=== PATIENT | female | born 1995 | race American Indian/Alaskan Native ===

== ENCOUNTER 2019-02-04 16:26 | Emergency (ER) | payer SELFPAY ==
--- NOTE | 2019-02-04 16:47 | Emergency Department Report ---
Blank Doc - Documentation Documentation: 23 y o female at aprox 8 weeks gestation presents with nausea, found out she was x 3 days denies vag bleed, dysuria,
[2019-02-04 17:05] LABS: Bilirubin,Urine NEG (Negative); Blood,Urine SM (Negative); Color,Urine Yellow (Yellow); Protein,Urine <15 mg/dL mg/dL (Negative)
[2019-02-04] MEDS ORDERED: NACL 0.9% 1000 ML 1,000 ML IV ONE (17:37)
[2019-02-04] MEDS ORDERED: ZOFRAN IV ONE (17:37)
--- NOTE | 2019-02-04 17:40 | Emergency Department Report ---
ED General Adult HPI - General Chief complaint: Nausea/Vomiting/Diarrhea Stated complaint: 8WKS /NOT EATING Time Seen by Provider: 02/04/19 16:42 Source: patient Mode of arrival: Ambulatory Limitations: No Limitations - History of Present Illness Initial comments: Patient is 23-year-old female with no significant past medical history. Patient is 2 para 0. Patient estimated that she is 8 weeks no care so far. Patient presented to the ER complaining of excessive vomiting and sharp pelvic pain. Patient denied any vaginal bleeding or vaginal discharge. Patient is actively vomiting in the emergency room. - Related Data Home Medications Medication Instructions Recorded Confirmed Last Taken Vit No.129/Iron/Folic 1 each PO DAILY 02/04/19 02/04/19 02/04/19 [ Tablet] Allergies Allergy/AdvReac Type Severity Reaction Status Date / Time No Known Allergies Allergy Unverified 09/04/18 11:33 ED Review of Systems ROS: Stated complaint: 8WKS /NOT EATING Other details as noted in HPI Comment: All other systems reviewed and negative Constitutional: denies: chills, fever Respiratory: denies: cough, shortness of breath, SOB with exertion Cardiovascular: denies: chest pain, palpitations Gastrointestinal: nausea, vomiting. denies: abdominal pain, diarrhea, constipation, hematemesis, melena, hematochezia Genitourinary: denies: urgency, dysuria, abnormal menses Musculoskeletal: denies: back pain Neurological: denies: headache, weakness, numbness, paresthesias, confusion ED Past Medical Hx - Past Medical History Previous Medical History?: Yes Hx Kidney Stones: Yes Additional medical history: Miscarriage @ 18weeks - Surgical History Past Surgical History?: No - Social History Smoking Status: Never Smoker Substance Use Type: Other - Medications Home Medications: Home Medications Medication Instructions Recorded Confirmed Last Taken Type Vit No.129/Iron/Folic 1 each PO DAILY 02/04/19 02/04/19 02/04/19 History [ Tablet] ED Physical Exam - General Limitations: No Limitations General appearance: alert, in no apparent distress - Head Head exam: Present: atraumatic, normocephalic, normal inspection - Eye Eye exam: Present: normal appearance - ENT ENT exam: Present: normal exam, normal orophraynx, mucous membranes moist - Neck Neck exam: Present: normal inspection, full ROM. Absent: tenderness, meningismus, lymphadenopathy, thyromegaly - Respiratory Respiratory exam: Present: normal lung sounds bilaterally - Cardiovascular Cardiovascular Exam: Present: regular rate, normal rhythm, normal heart sounds - GI/Abdominal GI/Abdominal exam: Present: soft, normal bowel sounds. Absent: distended, tenderness, guarding, rebound, rigid, organomegaly, mass, bruit, pulsatile mass, hernia - Extremities Exam Extremities exam: Present: normal inspection, full ROM, normal capillary refill. Absent: pedal edema, calf tenderness - Back Exam Back exam: Present: normal inspection, full ROM. Absent: CVA tenderness (R), CVA tenderness (L), muscle spasm, paraspinal tenderness, vertebral tenderness - Neurological Exam Neurological exam: Present: alert, oriented X3, CN II-XII intact, normal gait, reflexes normal - Skin Skin exam: Present: warm, intact, normal color ED Course Vital Signs 02/04/19 02/04/19 16:32 17:52 Temperature 98.2 F Pulse Rate 71 60 Respiratory 20 18 Rate Blood Pressure 116/81 Blood Pressure 118/62 [Right] O2 Sat by Pulse 99 98 Oximetry ED Medical Decision Making - Lab Data Result diagrams: 02/04/19 17:46 02/04/19 17:46 - Radiology Data Radiology results: report reviewed Pelvic ultrasound showed a viable intrauterine at 6 weeks and 3 days gestation. - Medical Decision Making Patient is 23-year-old female with no significant past medical history. Patient is 2 para 0. Patient estimated that she is 8 weeks no care so far. Patient presented to the ER complaining of excessive vomiting and sharp pelvic pain. Patient denied any vaginal bleeding or vaginal discharge. Patient is actively vomiting in the emergency room. Patient stated that she is feeling much better after Zofran and normal saline. She stated that she is hungry and asking if she can eat. Ultrasound report reviewed the initial and a 6 week and daily day and intrauterine gestation viable. Patient given [facility] OB to follow-up with as she requested. Critical care attestation.: If time is entered above; I have spent that time in minutes in the direct care of this critically ill patient, excluding procedure time. ED Disposition Clinical Impression: Abdominal pain affecting , Nausea and vomiting Disposition: - TO HOME OR SELFCARE Is pt being admited?: No Condition: Stable Instructions: Abdominal Pain in (ED), Acute Nausea and Vomiting (ED) Referrals: [facility] [Provider Group] - 3-5 Days
[2019-02-04 18:00] LABS: Basophils % (Auto) 0.7 % (0.0-1.8); Eosinophils # (Auto) 0.1 K/mm3 (0.0-0.4); Eosinophils % (Auto) 0.9 % (0.0-4.3); Hematocrit 38.1 % (30.3-42.9); Hemoglobin 13.2 gm/dl (10.1-14.3); Lymphocytes # (Auto) 2.1 K/mm3 (1.2-5.4); Mean Corpuscular HGB Conc 35 % (30-34); Mean Corpuscular Volume 95 fl (79-97); Monocytes # (Auto) 0.7 K/mm3 (0.0-0.8); Monocytes % (Auto) 11.1 % (0.0-7.3); Platelet Count 307 K/mm3 (140-440); Red Cell Distribution Width 14.2 % (13.2-15.2)
[2019-02-04 18:16] LABS: Alanine Aminotransferase 14 units/L (7-56); Albumin 4.1 g/dL (3.9-5); BUN/Creatinine Ratio 14; Blood Urea Nitrogen 7 mg/dL (7-17); Calcium 8.5 mg/dL (8.4-10.2); Hemolysis Index 12
--- NOTE | 2019-02-04 19:47 | Ultrasound Report ---
PROCEDURE: US OB <= 14 WEEKS FETUS HISTORY: ABDOMINAL PAIN, FINDINGS: Real-time ultrasound of the pelvis was performed by transabdominal and endovaginal techniqu e, and demonstrates a single live intrauterine gestation at 6 weeks and 3 days with cardiac act ivity 124 bpm. The right ovary measures 2.0 x 1.0 x 1.2 cm and the left ovary 3.1 x 2.4 x 2.6 cm. There is no adnexa l mass or evidence of ovarian torsion. IMPRESSION: Single live intrauterine gestation at 6 weeks and 3days. Estimated date of delivery is [facility] 2019 This document is electronically signed by Brian Ahumada MD., February 04 2019 08:44:51 PM ET
--- NOTE | 2019-02-04 19:47 | Ultrasound Report ---
PROCEDURE: US OB TRANSVAGINAL TECHNIQUE: HISTORY: ABDOMINAL PAIN COMPARISONS: FINDINGS: Real-time ultrasound of the pelvis was performed by transabdominal and endovaginal techniqu e, and demonstrates a single live intrauterine gestation at 6 weeks and 3 days with cardiac act ivity 124 bpm. The right ovary measures 2.0 x 1.0 x 1.2 cm and the left ovary 3.1 x 2.4 x 2.6 cm. There is no adnexa l mass or evidence of ovarian torsion. IMPRESSION: Single live intrauterine gestation at 6 weeks and 3days. Estimated date of delivery is [facility] 2019 This document is electronically signed by Brian Ahumada MD., February 04 2019 08:45:03 PM ET
[2019-02-04 20:29] VITALS: BP 105/57
== END 2019-02-04 20:30 | disposition home or self-care (01) ==
LOC: ED 16:26
DX: O21.8 Other vomiting complicating pregnancy (principal); O26.891 Other specified pregnancy related conditions, first trimester; R10.2 Pelvic and perineal pain; Z87.442 Personal history of urinary calculi; Z3A.08 8 weeks gestation of pregnancy
CPT/HCPCS: 36415; 76801; 76817; 80053; 81001; 84702; 85025; 96361; 96374; 99284; J2405; J7030

== ENCOUNTER 2019-02-28 18:37 | Emergency (ER) | payer MEDICAID, OTHER ==
[2019-02-28] MEDS ORDERED: NACL 0.9% 1000 ML 1,000 ML IV ONE (20:03)
[2019-02-28] MEDS ORDERED: REGLAN IV ONE (20:03)
[2019-02-28] MEDS ORDERED: NACL 0.9% 1000 ML 1,000 ML ONE (20:09)
[2019-02-28 20:28] LABS: Basophils % (Auto) 0.4 % (0.0-1.8); Eosinophils % (Auto) 0.4 % (0.0-4.3); Hematocrit 36.8 % (30.3-42.9); Hemoglobin 12.7 gm/dl (10.1-14.3); Lymphocytes # (Auto) 1.8 K/mm3 (1.2-5.4); Lymphocytes % (Auto) 16.9 % (13.4-35.0); Mean Corpuscular HGB Conc 35 % (30-34); Mean Corpuscular Volume 95 fl (79-97); Monocytes # (Auto) 0.9 K/mm3 (0.0-0.8); Monocytes % (Auto) 8.5 % (0.0-7.3); Platelet Count 283 K/mm3 (140-440); Red Blood Count 3.89 M/mm3 (3.65-5.03); Red Cell Distribution Width 13.3 % (13.2-15.2)
[2019-02-28 20:43] LABS: Alanine Aminotransferase 9 units/L (7-56); Albumin 4.2 g/dL (3.9-5); BUN/Creatinine Ratio 11; Blood Urea Nitrogen 8 mg/dL (7-17); Calcium 9.6 mg/dL (8.4-10.2); Hemolysis Index 6
[2019-02-28 20:56] LABS: Bilirubin,Direct < 0.2 mg/dL (0-0.2)
[2019-02-28 21:34] LABS: Bacteria,Urine 1+ /HPF (Negative); Bilirubin,Urine NEG (Negative); Blood,Urine NEG (Negative); Color,Urine Yellow (Yellow); Mucus,Urine 3+ /HPF; Protein,Urine <15 mg/dL mg/dL (Negative); Urobilinogen,Urine < 2.0 mg/dL (<2.0)
--- NOTE | 2019-02-28 21:34 | Emergency Department Report ---
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 10 weeks preg. onset today with dizziness -: Gradual Location: diffuse Severity scale (0 -10): 4 - Related Data Home Medications Medication Instructions Recorded Confirmed Last Taken Vit No.129/Iron/Folic 1 each PO DAILY 02/04/19 02/04/19 02/04/19 [ Tablet] Previous Rx's Medication Instructions Recorded Last Taken Type Ondansetron [Zofran Odt] 4 mg PO Q8HR PRN #14 tab.rapdis 02/04/19 Unknown Rx Vit-Fe Fumar-FA [ 1 tab PO QDAY #30 tablet 02/04/19 Unknown Rx Vitamin] Doxylamine Succinate/Vit B6 1 each PO BID PRN #15 tablet. 02/28/19 Unknown Rx [Timoeto Zelaya 10-10 mg Tablet] Allergies Allergy/AdvReac Type Severity Reaction Status Date / Time No Known Allergies Allergy Unverified 09/04/18 11:33 ED Review of Systems ROS: Stated complaint: ABD PAIN/10WKS Other details as noted in HPI Comment: All other systems reviewed and negative Constitutional: denies: chills ENT: denies: ear pain, throat pain Respiratory: denies: cough, orthopnea Cardiovascular: denies: chest pain, palpitations, dyspnea on exertion, orthopnea Gastrointestinal: nausea, vomiting Skin: denies: rash, lesions ED Past Medical Hx - Past Medical History Previous Medical History?: No Hx Kidney Stones: Yes Additional medical history: Miscarriage @ 18weeks - Surgical History Past Surgical History?: No - Social History Smoking Status: Never Smoker Substance Use Type: Marijuana - Medications Home Medications: Home Medications Medication Instructions Recorded Confirmed Last Taken Type Ondansetron [Zofran Odt] 4 mg PO Q8HR PRN #14 tab.rapdis 02/04/19 Unknown Rx Vit No.129/Iron/Folic 1 each PO DAILY 02/04/19 02/04/19 02/04/19 History [ Tablet] Vit-Fe Fumar-FA [ 1 tab PO QDAY #30 tablet 02/04/19 Unknown Rx Vitamin] Doxylamine Succinate/Vit B6 1 each PO BID PRN #15 tablet. 02/28/19 Unknown Rx [Timoteo Zelaya 10-10 mg Tablet] ED Physical Exam - General Limitations: No Limitations General appearance: alert, in no apparent distress - Head Head exam: Present: atraumatic, normocephalic - Eye Eye exam: Present: normal appearance, PERRL, EOMI Pupils: Present: normal accommodation - ENT ENT exam: Present: normal exam, normal orophraynx - Neck Neck exam: Present: normal inspection - Respiratory Respiratory exam: Present: normal lung sounds bilaterally - Cardiovascular Cardiovascular Exam: Present: regular rate, normal rhythm - Back Exam Back exam: Present: normal inspection - Neurological Exam Neurological exam: Present: alert, oriented X3, CN II-XII intact ED Course Vital Signs 02/28/19 02/28/19 02/28/19 18:58 19:30 20:00 Temperature 97.3 F L 98.5 F Pulse Rate 63 89 Respiratory 16 16 16 Rate Blood Pressure 90/53 Blood Pressure 100/69 [Right] O2 Sat by Pulse 97 99 98 Oximetry 02/28/19 22:00 Temperature 98.1 F Pulse Rate 89 Respiratory 16 Rate Blood Pressure Blood Pressure 114/61 [Right] O2 Sat by Pulse 99 Oximetry ED Medical Decision Making - Lab Data Result diagrams: 02/28/19 20:15 02/28/19 20:15 - Medical Decision Making patient feels better after ivf, state the Critical care attestation.: If time is entered above; I have spent that time in minutes in the direct care of this critically ill patient, excluding procedure time. ED Disposition Clinical Impression: Morning sickness Disposition: DC-01 TO HOME OR SELFCARE Is pt being admited?: No Does the pt Need Aspirin: No Condition: Stable Instructions: Abdominal Pain (ED) Prescriptions: Doxylamine Succinate/Vit B6 [Timoteo Zelaya 10-10 mg Tablet] 1 each PO BID PRN #15 tablet.dr URENA Reason: Nausea And Vomiting Referrals: OMERO RAYMOND MD [Primary Care Provider] - 3-5 Days
[2019-02-28 22:30] VITALS: BP 114/61
== END 2019-02-28 22:20 | disposition home or self-care (01) ==
LOC: ED 18:37
DX: O21.9 Vomiting of pregnancy, unspecified (principal); O26.891 Other specified pregnancy related conditions, first trimester; R10.84 Generalized abdominal pain; Z3A.10 10 weeks gestation of pregnancy; Z87.442 Personal history of urinary calculi
CPT/HCPCS: 36415; 80048; 80076; 81001; 84702; 85025; 96361; 96374; 99284; J2765; J7030

== ENCOUNTER 2019-03-27 18:33 | Day surgery (SDC) | payer MEDICAID ==
[2019-03-27] MEDS ORDERED: NACL 0.9% 1000 ML 1,000 ML IV ONE ×2 (19:12→23:40)
[2019-03-27] MEDS ORDERED: ZOFRAN IV ONE (19:12)
[2019-03-27] MEDS ORDERED: SUBLIMAZE IV ONE (19:12)
--- NOTE | 2019-03-27 19:18 | Emergency Department Report ---
HPI - General Chief Complaint: Vaginal Bleeding Time Seen by Provider: 03/27/19 19:03 - [facility] HPI: Room 10 The patient is a 23-year-old female presenting with a chief complaint of vaginal bleeding and abdominal cramping. The patient states she had demise and was given a prescription for misoprostol. The patient states she took medication at 11:30 this morning and began having cramping. Patient developed vaginal bleeding at 16:00. The patient states she passed the fetus but she has continued to have heavy vaginal bleeding and pelvic cramping. The patient states she is gone through 10 pads since the vaginal bleeding began Location: [See above] Duration: [See above] Quality: [See above] Severity: [See above] Modifying factors: [see above] Context: [see above] Mode of transportation: [not driving] ED Past Medical Hx - Past Medical History Hx Kidney Stones: Yes Additional medical history: Miscarriage @ 18weeks - Surgical History Past Surgical History?: No - Family History Family history: no significant - Social History Smoking Status: Never Smoker Substance Use Type: None - Medications Home Medications: Home Medications Medication Instructions Recorded Confirmed Last Taken Type Ondansetron [Zofran Odt] 4 mg PO Q8HR PRN #14 tab.rapdis 02/04/19 Unknown Rx Vit No.129/Iron/Folic 1 each PO DAILY 02/04/19 02/04/19 02/04/19 History [ Tablet] Vit-Fe Fumar-FA [ 1 tab PO QDAY #30 tablet 02/04/19 Unknown Rx Vitamin] Doxylamine Succinate/Vit B6 1 each PO BID PRN #15 tablet. 02/28/19 Unknown Rx [Timoteo Zelaya 10-10 mg Tablet] ED Review of Systems ROS: Stated complaint: HEAVY BLEEDING/MISCARRIAGE Other details as noted in HPI Constitutional: no symptoms reported Eyes: denies: eye pain ENT: denies: throat pain Respiratory: no symptoms reported Cardiovascular: denies: chest pain Endocrine: no symptoms reported Gastrointestinal: abdominal pain Genitourinary: abnormal menses Musculoskeletal: denies: back pain Neurological: denies: headache Physical Exam - Physical Exam Physical Exam: GENERAL: The patient is well-developed well-nourished female lying on stretcher appearing to be in moderate discomfort. [] HEENT: Normocephalic. Atraumatic. Extraocular motions are intact. Patient has moist mucous membranes. NECK: Supple. Trachea midline CHEST/LUNGS: Clear to auscultation. There is no respiratory distress noted. HEART/CARDIOVASCULAR: Regular. There is no tachycardia. There is no gallop rub or murmur. ABDOMEN: Abdomen is soft, nontender. Patient has normal bowel sounds. There is no abdominal distention. SKIN: There is no rash. There is no edema. There is no diaphoresis. NEURO: The patient is awake, alert, and oriented. The patient is cooperative. The patient has normal speech MUSCULOSKELETAL: There is no evidence of acute injury. PELVIC: Large amount of dark red blood and blood clots in the vaginal vault ED Course - Consultations Consultation #1: 03/27/19 23:41 LEARNING DESIGN SPECIALIST paged 03/27/19 23:[address] Titus-will take patient for D&C ED Medical Decision Making - Lab Data Result diagrams: 03/27/19 19:30 03/27/19 19:30 Laboratory Tests 03/27/19 03/27/19 03/27/19 19:30 19:30 19:30 WBC 8.5 RBC 3.35 L Hgb 10.9 Hct 31.8 MCV 95 MCH 33 H MCHC 35 H RDW 13.3 Plt Count 242 Lymph % (Auto) 23.1 [place] % (Auto) 8.5 H Eos % (Auto) 1.1 Baso % (Auto) 0.4 Lymph # 2.0 Tyrrell # 0.7 Eos # 0.1 Baso # 0.0 Seg Neutrophils % 66.9 Seg Neutrophils # 5.7 Sodium 138 Potassium 3.5 L Chloride 104.1 Carbon Dioxide 19 L Anion Gap 18 BUN 8 Creatinine 0.8 Estimated GFR > 60 BUN/Creatinine Ratio 10 Glucose 99 Calcium 8.6 HCG, Quant 5172 H Blood Type Ord Rhogam Gestat Weeks 03/27/19 19:30 WBC RBC Hgb Hct MCV MCH MCHC RDW Plt Count Lymph % (Auto) [place] % (Auto) Eos % (Auto) Baso % (Auto) Lymph # Tyrrell # Eos # Baso # Seg Neutrophils % Seg Neutrophils # Sodium Potassium Chloride Carbon Dioxide Anion Gap BUN Creatinine Estimated GFR BUN/Creatinine Ratio Glucose Calcium HCG, Quant Blood Type A POSITIVE Ord Rhogam Gestat Weeks pos - Radiology Data Radiology results: report reviewed (pelvic ultrasound), image reviewed (pelvic ultrasound) [facility] [address] [place] [address] Ultrasound Report Signed Patient: JOE ROBERTS MR#: [id number] : 1995 Acct:[id number] Age/Sex: 23 / F ADM Date: 03/27/19 Loc: ED Attending Dr: Ordering Physician: MARCELINO BARAKAT MD Date of Service: 03/27/19 Procedure(s): US OB transvaginal Accession Number(s): [id number] cc: MARCELINO BARAKAT MD ULTRASOUND OBSTETRIC Indication: vaginal bleeding status post miscarriage Findings: The uterus measures 12.4 x 5.9 x 6.2 cm. The endometrium is thickened, measuring 3.5 cm. There is some soft tissue material in the endometrial cavity that shows internal flow on Doppler imaging. There is also a focal soft tissue nodule in the cervix measuring 1.1 x 0.8 x 1.1 cm without appreciable internal flow.. The ovaries are normal. There is no free fluid. IMPRESSION: 1. Thickened endometrium with some internal flow concerning for possible retained products of conception. 2. Soft tissue nodule in the cervix without appreciable blood flow, probable blood clot. Signer Name: Kei Villarreal MD Signed: 03/27/2019 9:27 PM Workstation Name: [id number] Transcribed By: ALIN Dictated By: Kei Villarreal MD Electronically Authenticated By: Kei Villarreal MD Signed Date/Time: 03/27/192126 DD/ 24 TD/TT: - Differential Diagnosis incomplete , Critical care attestation.: If time is entered above; I have spent that time in minutes in the direct care of this critically ill patient, excluding procedure time. ED Disposition Clinical Impression: Incomplete Disposition: DC-09 OP ADMIT IP TO THIS HOSP Is pt being admited?: Yes Does the pt Need Aspirin: No Condition: Fair Referrals: PRIMARY CARE, [Primary Care Provider] - 3-5 Days Time of Disposition: 23:52 (LEARNING DESIGN SPECIALIST notified)
[2019-03-27 19:41] LABS: Basophils % (Auto) 0.4 % (0.0-1.8); Eosinophils # (Auto) 0.1 K/mm3 (0.0-0.4); Eosinophils % (Auto) 1.1 % (0.0-4.3); Hematocrit 31.8 % (30.3-42.9); Hemoglobin 10.9 gm/dl (10.1-14.3); Lymphocytes % (Auto) 23.1 % (13.4-35.0); Mean Corpuscular HGB Conc 35 % (30-34); Mean Corpuscular Volume 95 fl (79-97); Monocytes # (Auto) 0.7 K/mm3 (0.0-0.8); Monocytes % (Auto) 8.5 % (0.0-7.3); Platelet Count 242 K/mm3 (140-440); Red Blood Count 3.35 M/mm3 (3.65-5.03); Red Cell Distribution Width 13.3 % (13.2-15.2)
[2019-03-27 19:59] LABS: BUN/Creatinine Ratio 10; Blood Urea Nitrogen 8 mg/dL (7-17); Calcium 8.6 mg/dL (8.4-10.2); Hemolysis Index 40
--- NOTE | 2019-03-27 21:31 | Ultrasound Report ---
ULTRASOUND OBSTETRIC Indication: vaginal bleeding status post miscarriage Findings: The uterus measures 12.4 x 5.9 x 6.2 cm. The endometrium is thickened, measuring 3.5 cm. There is miles e soft tissue material in the endometrial cavity that shows internal flow on Doppler imaging. There is also a focal soft tissue nodule in the cervix measuring 1.1 x 0.8 x 1.1 cm without appreciab le internal flow.. The ovaries are normal. There is no free fluid. IMPRESSION: 1. Thickened endometrium with some internal flow concerning for possible retained products of concept ion. 2. Soft tissue nodule in the cervix without appreciable blood flow, probable blood clot. Signer Name: Kei Villarreal MD Signed: 03/27/2019 9:27 PM Workstation Name: [id number]
[2019-03-27] MEDS ORDERED: DOXYCYCLINE HYCLATE 100 MG in NACL 0.9% 250ML 250 ML IV ONE (23:55)
[2019-03-27] MEDS ORDERED: METHERGINE IM ONE (23:55)
[2019-03-27] MEDS ORDERED: CYTOTEC PR ONE (23:56)
[2019-03-28] MEDS ORDERED: XYLOCAINE MPF 2% ONE (00:18)
[2019-03-28] MEDS ORDERED: SUBLIMAZE ONE (00:18)
[2019-03-28] MEDS ORDERED: DIPRIVAN 10 MG/ML IV ONE (00:18)
[2019-03-28] MEDS ORDERED: SILVER NITRATE TP ONE (01:01)
[2019-03-28] MEDS ORDERED: METHERGINE IM ONE (01:01)
[2019-03-28] MEDS ORDERED: TRANSDERM-SCOP TD ONE (01:02)
[2019-03-28] MEDS ORDERED: XYLOCAINE 2% UROJET ONE (01:02)
--- NOTE | 2019-03-28 01:07 | Anesthesia Day of Surgery ---
Anesthesia Day of Surgery - Day of Surgery Patient Examined: Yes Patient H&P Reviewed: Yes Patient is NPO: Yes
--- NOTE | 2019-03-28 01:07 | Anesthesia Consultation ---
Anesthesia Consult and Med Hx Date of service: 03/28/19 - Airway Anesthetic Teeth Evaluation: Good ROM Head & Neck: Adequate Mental/Hyoid Distance: Adequate Mallampati Class: Class III Intubation Access Assessment: Possibly Difficult - Pulmonary Exam CTA: Yes - Cardiac Exam Cardiac Exam: RRR - Pre-Operative Health Status ASA Pre-Surgery Classification: ASA1, Emergency Proposed Anesthetic Plan: General - Pulmonary Hx Smoking: Yes (1-2 cigs/day) Hx Respiratory Symptoms: No - Cardiovascular System Hx Hypertension: No Hx Heart Attack/AMI: No Hx Percutaneous Transluminal Coronary Angioplasty (PTCA): No Hx Cardia Arrhythmia: No - Central Nervous System Hx Seizures: No CVA: No - Gastrointestinal Hx Gastroesophageal Reflux Disease: No - Endocrine Hx Renal Disease: No (recurrent kidney stones; no CKD) Hx Liver Disease: No Hx Insulin Dependent Diabetes: No Hx Non-Insulin Dependent Diabetes: No Hx Thyroid Disease: No - Hematic Hx Anemia: Yes (no hx transfusions) - Other Systems Hx Obesity: No - Additional Comments Anesthesia Medical History Comments: No significant PMH presenting w/ 18wk miscarraige s/p misoprostol now with heavy vaginal bleeding scheduled for D&C. HD stable, modest anemia, current T&S. NPO since 03/27 1500. No hx anesthetic complications.
[2019-03-28] MEDS ORDERED: SUBLIMAZE IV PRN (01:08)
[2019-03-28] MEDS ORDERED: DEMEROL IV PRN (01:08)
--- NOTE | 2019-03-28 01:08 | History and Physical Report ---
History of Present Illness Date of examination: 03/28/19 Chief complaint: vaginal bleeding History of present illness: Pt is a 23 year old -[place] female FELICIA 09/27/19 at 13w6d by 6 wk sono presents with abdominal pain and vaginal bleeding. She reports being diagnosed with demise earlier this week (though office records are not available at this time). She was seen in the office on Tuesday and prescribed "3 pills." She reports taking the medication at 1130 this am. She immediately started cramping. Shortly thereafter, she reports having heavy vaginal bleeding changing 1 pad every 10 minutes. She changed 10 pads at home prior to coming the emergency department. Since admission she had a pelvic ultrasound which showed a thickened endometrium of 3.5 cm suggestive of retained products of conception. Past History Past Medical History: no pertinent history Past Surgical History: no surgical history Family/Genetic History: none Social history: no significant social history - Obstetrical History Expected Date of Delivery: 09/27/19 Actual Gestation: 13 Week(s) 6 Day(s) : 2 Para: 0 Hx # Term Pregnancies: 0 Number of Pregnancies: 0 Spontaneous Abortions: 1 Induced : 0 Number of Living Children: 0 Medications and Allergies Allergies Allergy/AdvReac Type Severity Reaction Status Date / Time No Known Allergies Allergy Unverified 09/04/18 11:33 Home Medications Medication Instructions Recorded Confirmed Last Taken Type Ondansetron [Zofran Odt] 4 mg PO Q8HR PRN #14 tab.rapdis 02/04/19 Unknown Rx Vit No.129/Iron/Folic 1 each PO DAILY 02/04/19 02/04/19 02/04/19 History [ Tablet] Vit-Fe Fumar-FA [ 1 tab PO QDAY #30 tablet 02/04/19 Unknown Rx Vitamin] Doxylamine Succinate/Vit B6 1 each PO BID PRN #15 tablet. 02/28/19 Unknown Rx [Timoteo Zelaya 10-10 mg Tablet] DOXYCYCLINE Hyclate [Vibramycin 100 mg PO Q12HR #14 capsule 03/28/19 Unknown Rx CAP] Ibuprofen [Motrin] 800 mg PO Q8HR PRN #30 tablet 03/28/19 Unknown Rx oxyCODONE /ACETAMINOPHEN [Percocet 1 tab PO Q6HR PRN #10 tablet 03/28/19 Unknown Rx 5/325] Review of Systems All systems: negative - Vital Signs Vital signs: Vital Signs Pulse Resp BP Pulse Ox 68 16 113/55 100 03/27/19 20:23 03/27/19 20:23 03/27/19 20:23 03/27/19 20:23 Temp Pulse Resp BP Pulse Ox 78 18 101/68 99 03/27/19 21:31 03/27/19 21:31 03/27/19 21:31 03/27/19 21:31 - Physical Exam Breasts: Positive: deferred Cardiovascular: Regular rate Lungs: Positive: Clear to auscultation Abdomen: Positive: soft Extremities: Positive: normal Results Result Diagrams: 03/27/19 19:30 03/27/19 19:30 Abnormal lab results 03/27/19 03/27/19 03/27/19 Range/Units 19:30 19:30 19:30 RBC 3.35 L (3.65-5.03) M/mm3 MCH 33 H (28-32) pg MCHC 35 H (30-34) % [place] % (Auto) 8.5 H (0.0-7.3) % Potassium 3.5 L (3.6-5.0) mmol/L Carbon Dioxide 19 L (22-30) mmol/L HCG, Quant 5172 H (0-4) mIU/mL All other labs normal. Assessment and Plan A: Missed at 13 wks Vaginal bleeding Retained products of conception P: Proceed with suction dilation and curettage and other indicated procedures
[2019-03-28] MEDS ORDERED: LACTATED RINGERS 1,000 ML ONE (01:12)
[2019-03-28] MEDS ORDERED: CYTOTEC PR ONE (02:00)
[2019-03-28] MEDS ORDERED: ZOFRAN ONE (02:23)
--- NOTE | 2019-03-28 02:23 | Operative Report ---
Operative Report Operative Report: Date of procedure: March 28, 2019 Preoperative diagnosis: Incomplete at 13 wks, retained products of c onception Postoperative diagnosis: Same Procedure: Suction Dilation and Curettage Surgeon: Blanche Titus MD Anesthesia: General with LMA Findings: 1) 12-14 wk uterus that was dilated 1 cm prior to start of procedure with products of conception at the external os EBL: minimal Urine output: 100 mL, clear, prior to procedure Specimens: Products of conception to pathology Drains: None Complications: None. Counts correct x 2 Disposition: Stable to PACU Indication for procedure: Pt is a 23 year old -[place] female at 13 wks by 6 wk sono with incomplete and retained products of conception on ultrasound after medical management of missed . Procedure in detail: After the risks, benefits, alternatives and complications were explained to the patient she gave informed consent for the procedure. She was subsequently taken to the operating room with her IV noted to be running well. She was placed in the dorsal supine position and SCDs were noted to be in place and functioning. General anesthesia was then induced without difficulty. She was then placed in the dorsal lithotomy position and prepped and draped in a normal sterile fashion. A timeout was performed. An exam under anethesia revealed a 12-14 wk sized uterus with a dilated cervical os with clots and products of conception in the vaginal vault. The bladder was emptied yielding 100 mL of clear urine. A bi-valve speculum was placed into the vagina for visualization of the cervix. A single-tooth tenaculum was placed on the anterior lip of the cervix. The cervix was sufficiently dilated to accomodate a #12 rigid curette. A number 12 rigid suction curette was used to evacuate the uterine cavity under ultrasound guidance until the endometrium appeared uniform. Methergine 0.2 mg IM and Misoprostol 800 mcg per rectum were given. All instruments were then removed from the vagina atraumatically and the procedure was ended. The patient was replaced into the dorsal supine position and extubated without difficulty. She was then taken to the PACU in stable condition. All counts were correct x 2.
[2019-03-28] MEDS ORDERED: DECADRON ONE (02:24)
--- NOTE | 2019-03-28 02:29 | Short Stay Summary ---
Short Stay Documentation Date of service: 03/28/19 - History H&P: dictated - Allergies and Medications Current Medications: Allergies No Known Allergies Allergy (Unverified 09/04/18 11:33) Home Medications Medication Instructions Recorded Confirmed Last Taken Type Ondansetron [Zofran Odt] 4 mg PO Q8HR PRN #14 tab.rapdis 02/04/19 Unknown Rx Vit No.129/Iron/Folic 1 each PO DAILY 02/04/19 02/04/19 02/04/19 History [ Tablet] Vit-Fe Fumar-FA [ 1 tab PO QDAY #30 tablet 02/04/19 Unknown Rx Vitamin] Doxylamine Succinate/Vit B6 1 each PO BID PRN #15 tablet. 02/28/19 Unknown Rx [Timoteo Zelaya 10-10 mg Tablet] Active Medications Fentanyl (Sublimaze) 50 mcg IV Q5MIN PRN PRN Reason: Pain , Severe (7-10) Stop: 03/28/19 06:59 Meperidine HCl (Demerol) 12.5 mg IV ONCE PRN PRN Reason: Shivering Stop: 03/28/19 23:59 - Brief post op/procedure progress note Date of procedure: 03/28/19 Pre-op diagnosis: Incomplete , Retained Products of Conception Post-op diagnosis: same Procedure: Suction dilation and curettage Anesthesia: GETA (with LMA ) Findings: 12-14 wk uterus that was dilated 1 cm prior to start of procedure with products of conception at the external os Surgeon: YULIA TITUS Estimated blood loss: minimal Pathology: list (products of conception) Specimen disposition: to lab Condition: stable - Hospital course Hospital course: Patient was admitted with heavy vaginal bleeding and diagnosed with incomplete . She underwent a suction dilation and curettage she tolerated well. She was observed in the PACU until she met discharge criteria. She will follow- up in the office in [address] Titus. - Disposition Condition at discharge: Stable Disposition: TO HOME OR SELFCARE - Discharge Diagnoses (1) Anemia Status: Acute Qualifiers: Anemia type: unspecified type Qualified Code(s): D64.9 - Anemia, unspecified (2) Incomplete Status: Acute Short Stay Discharge Plan Activity: other (Nothing in vagina and no tub baths x 4 wks ) Weight Bearing Status: Full Weight Bearing Diet: regular Special Instructions: no heavy lifting Follow up with: PRIMARY CARE, [Primary Care Provider] - 3-5 Days YULIA TITUS MD [Staff Physician] - 04/02/19 (Please call to schedule appt with Dr Titus ) Prescriptions: Ibuprofen [Motrin] 800 mg PO Q8HR PRN #30 tablet PRN Reason: Pain, Moderate (4-6) oxyCODONE /ACETAMINOPHEN [Percocet 5/325] 1 tab PO Q6HR PRN #10 tablet PRN Reason: Pain DOXYCYCLINE Hyclate [Vibramycin CAP] 100 mg PO Q12HR #14 capsule
[2019-03-28] MEDS ORDERED: PHENYLEPHRINE/NS Syringe 1,000 MCG/10 ML IV ONE (02:30)
[2019-03-28] MEDS ORDERED: PERCOCET 5/325 PO PRN (03:31)
[2019-03-28] MEDS ORDERED: PERCOCET 5/325 ONE (03:32)
[2019-03-28 03:57] VITALS: BP 110/58
--- NOTE | 2019-03-28 06:48 | Post Anesthesia Evaluation ---
- Post Anesthesia Evaluation Patient Participated: Yes Airway Patent: Yes Stable Respiratory Function: Yes Nausea/Vomiting: No Temp > 96.8F: Yes Pain Manageable: Yes Adequeate Hydration: Yes Anesthesia Complications: No
--- NOTE | 2019-03-29 07:02 | Ultrasound Report ---
US guide intraoperative INDICATION: Guidance for D and C. History of retained products of conception. COMPARISON: Pelvic ultrasound from 03/27/2019. FINDINGS: Limited sonography of the pelvis was performed to guide a D and C. Please see the operative report fo r further details. IMPRESSION: Limited pelvic ultrasound for intraoperative guidance of D and C. Signer Name: Joe Johnson MD Signed: 03/29/2019 6:58 AM Workstation Name: [id number]
== END 2019-03-28 01:13 | disposition home or self-care (01) ==
LOC: ED 18:33 → LDOR 03-28 01:12
PROVIDERS: ATTEND Emergency Medicine Emergency Medical Services
DX: O03.4 Incomplete spontaneous abortion without complication (principal); D64.9 Anemia, unspecified; Z79.899 Other long term (current) drug therapy; Z87.442 Personal history of urinary calculi
CPT/HCPCS: 36415; 59812; 76801; 76817; 76998; 80048; 84702; 85025; 86900; 86901; 88305; 99284; J1100; J2210; J2370; J2405; J2704; J3010; J7030; J7050; J7120